=== PATIENT | male | born 1960 | race Caucasian/White ===

== ENCOUNTER 2017-10-02 10:33 | Inpatient (IN) | payer OTHER, MEDICAID ==
[~2017-10-02] VITALS: Ht 172.7 cm; Wt 78.5 kg
[2017-10-02] MEDS ORDERED: SODIUM CHLORIDE 0.9% 1,000 ML IV ONE (11:06)
[2017-10-02] MEDS ORDERED: KETOROLAC TROMETH 30 MG/ML 1ML VIAL IV ONE (11:15)
[2017-10-02 11:38] LABS: Basophils # (auto) 0.1 uL; Basophils % (auto) 0.6 % (0.0-2.0); Eosinophils # (auto) 0.1 uL; Eosinophils % (auto) 0.8 % (0.0-7.0); Hemoglobin 17.9 g/dL (13.5-17.5); Nucleated Red Blood Cells % 0.2 %
[2017-10-02 11:40] LABS: Hematocrit 53.1 % (41.0-53.0); Lymphocytes # (auto) 1.6 uL; Lymphocytes % (auto) 12.5 % (10.0-50.0); Mean Corpuscular Hemoglobin 30.3 pg (28.0-32.0); Mean Corpuscular Hgb Conc. 33.8 g/dL (32.0-36.0); Mean Corpuscular Volume 89.8 fL (80.0-100.0); Monocytes # (auto) 0.7 uL; Monocytes % (auto) 5.8 % (0.0-12.0); Neutrophils # (auto) 10.2 uL; Neutrophils % (auto) 80.3 % (37.0-80.0); Platelet Count (auto) 228 10^3/uL (140-450); Red Blood Cells 5.91 10^6/uL (4.5-5.90); Red Cell Distribution Width 13.6 % (11.8-14.3); White Blood Cell 12.7 10^3/uL (4.4-10.8)
[2017-10-02 12:02] LABS: INR 0.93 (0.9-1.15); Partial Thromboplastin Time 26.8 sec (22.64-33.71); Prothrombin Time 10.1 sec (9.37-12.3)
[2017-10-02 12:05] LABS: Albumin 3.9 g/dL (3.4-5.0); BUN/Creatinine Ratio 9.9; Bilirubin, Total 0.6 mg/dL (0.2-1.0); Calcium 8.6 mg/dL (8.5-10.1); Magnesium 2.7 mg/dL (1.6-2.6); Potassium 4.8 mmol/L (3.5-5.1); Total Protein 8.1 g/dL (6.4-8.2)
[2017-10-02] MEDS ORDERED: IOHEXOL 350 MG/ML 100ML IJ ONE (12:13)
[2017-10-02] MEDS ORDERED: LORazepam 0.5 MG TAB PO PRN (14:15)
[2017-10-02] MEDS ORDERED: ONDANSETRON HCL 4 MG/2 ML VIAL IV PRN (14:15)
[2017-10-02] MEDS ORDERED: NITROGLYCERIN 0.4 MG SL TAB SL PRN ×2 (14:15)
[2017-10-02] MEDS ORDERED: ACETAMINOPHEN 325 MG TAB PO PRN (14:15)
[2017-10-02] MEDS ORDERED: MORPHINE SULFATE 4 MG/ML SYR/VIAL IV PRN (14:15)
[2017-10-02] MEDS ORDERED: ZOLPIDEM TARTRATE 5 MG TAB PO PRN (14:15)
[2017-10-02] MEDS ORDERED: ALUM & MAG HYDROX-SIMETH LIQ(MAALOX) 30 ML PO ONE (14:15)
[2017-10-02] MEDS ORDERED: cloNIDine HCL 0.1 MG TAB ONE (18:54)
[2017-10-02 18:55] LABS: Urine Bacteria NONE SEEN /hpf (None Seen); Urine Blood Negative /uL (Negative); Urine Specific Gravity 1.031 (1.001-1.035); Urine WBC 2 /hpf (0 - 3)
[2017-10-02] MEDS ORDERED: cloNIDine HCL 0.1 MG TAB PO PRN (19:00)
[2017-10-02] MEDS ORDERED: TICAGRELOR 90 MG TAB PO ONE (21:15)
[2017-10-02] MEDS: CARVEDILOL 3.125 MG TAB PO SCH (21:37)
[2017-10-02] MEDS: SODIUM CHLOR 0.9% PF (SALINE LOCK) 10ML VIAL IV SCH (21:38)
[2017-10-02] MEDS: LISINOPRIL 20 MG TAB PO SCH (22:00)
[2017-10-02] MEDS ORDERED: ENOXAPARIN SOD 80 MG/0.8ML SYRINGE SC SCH (22:00)
[2017-10-02] MEDS ORDERED: ATORVASTATIN 20 MG TAB PO SCH (22:00)
[2017-10-02] MEDS: MORPHINE SULFATE 4 MG/ML SYR/VIAL IV PRN (23:27)
[2017-10-03] VITALS (9 sets, daily range): BP systolic 100–115; BP diastolic 56–72
[2017-10-03] MEDS: MORPHINE SULFATE 4 MG/ML SYR/VIAL IV PRN (02:22)
[2017-10-03] MEDS ORDERED: IOHEXOL 350 MG/ML 100ML IJ ONE (03:15)
[2017-10-03] MEDS ORDERED: LIDOCAINE HCL 2 %PF INJ 10ML AMP IJ ONE (03:18)
[2017-10-03] MEDS ORDERED: ANGIOMAX 250 MG VIAL IV ONE (03:19)
[2017-10-03] MEDS ORDERED: MIDAZOLAM HCL 1MG/1ML-2 ML VIAL ONE (03:19)
[2017-10-03] MEDS ORDERED: fentaNYL CITRATE 100 MCG/2 ML VL ONE (03:19)
[2017-10-03] MEDS ORDERED: EPTIFIBATIDE INJ (2MG/ML) 10ML VIAL IV ONE ×2 (03:20→03:55)
[2017-10-03] MEDS ORDERED: SODIUM CHL 0.9% 50 ML ONE (03:20)
[2017-10-03] MEDS ORDERED: ATROPINE SULF 0.5 MG/5ML SYR ONE (03:36)
[2017-10-03] MEDS ORDERED: IODIXANOL 320MG/ML 100ML BTL IV ONE (03:55)
[2017-10-03] MEDS ORDERED: EPTIFIBATIDE DRIP(0.75MG/ML) 0 ML IV ONE (03:56)
[2017-10-03] MEDS ORDERED: SODIUM CHLORIDE 0.9% 1,000 ML IV SCH (04:30)
[2017-10-03] MEDS: SODIUM CHLOR 0.9% PF (SALINE LOCK) 10ML VIAL IV SCH ×2 (06:00→13:37)
[2017-10-03] MEDS ORDERED: OMEP20CA74 PO (06:34)
[2017-10-03] MEDS ORDERED: LORA1TAB12 PO (06:34)
[2017-10-03] MEDS ORDERED: LISI-646 PO (06:34)
[2017-10-03] MEDS ORDERED: EZET10TA6 PO (06:34)
[2017-10-03 08:33] LABS: Basophils # (auto) 0.1 uL; Basophils % (auto) 0.9 % (0.0-2.0); Eosinophils # (auto) 0.1 uL; Eosinophils % (auto) 0.5 % (0.0-7.0); Hematocrit 44.2 % (41.0-53.0); Hemoglobin 14.8 g/dL (13.5-17.5); Lymphocytes # (auto) 1.8 uL; Mean Corpuscular Hgb Conc. 33.6 g/dL (32.0-36.0); Mean Corpuscular Volume 89.4 fL (80.0-100.0); Monocytes # (auto) 0.9 uL; Monocytes % (auto) 8.3 % (0.0-12.0); Neutrophils # (auto) 8.2 uL; Neutrophils % (auto) 74.3 % (37.0-80.0); Platelet Count (auto) 181 10^3/uL (140-450); Red Blood Cells 4.94 10^6/uL (4.5-5.90); Red Cell Distribution Width 13.5 % (11.8-14.3); White Blood Cell 11.1 10^3/uL (4.4-10.8)
[2017-10-03 09:54] LABS: Albumin 3.2 g/dL (3.4-5.0); BUN/Creatinine Ratio 13.1; Magnesium 2.5 mg/dL (1.6-2.6); Potassium 4.9 mmol/L (3.5-5.1); Total Protein 6.5 g/dL (6.4-8.2)
[2017-10-03] MEDS: CARVEDILOL 3.125 MG TAB PO SCH (10:00)
[2017-10-03] MEDS ORDERED: TICAGRELOR 90 MG TAB PO SCH (10:00)
[2017-10-03] MEDS ORDERED: DOCUSATE SOD 100 MG CAP PO SCH (10:00)
[2017-10-03] MEDS: LISINOPRIL 20 MG TAB PO SCH (10:00)
[2017-10-03] MEDS ORDERED: CLOPIDOGREL BISULFATE 75 MG TAB PO SCH (10:00)
[2017-10-03] MEDS ORDERED: ASPirin 81 mg TAB PO SCH (10:00)
== END 2017-10-03 18:30 | disposition home or self-care (01) | DRG 247 ==
LOC: ER 10:33 → TELE 10:34 → DOU IN ICU 23:18 → TELE 10-03 00:08 → DOU IN ICU 10-03 05:00
PROVIDERS: ADMIT Internal Medicine; ATTEND Internal Medicine
PROC: 027035Z Dilation of Coronary Artery, One Artery with Two Drug-eluting Intraluminal Devices, Percutaneous Approach (ICD-10-PCS; principal; 2017-10-03)
PROC: 4A023N7 Measurement of Cardiac Sampling and Pressure, Left Heart, Percutaneous Approach (ICD-10-PCS; 2017-10-03)
PROC: B2111ZZ Fluoroscopy of Multiple Coronary Arteries using Low Osmolar Contrast (ICD-10-PCS; 2017-10-03)
DX: I21.4 Non-ST elevation (NSTEMI) myocardial infarction (principal); D75.1 Secondary polycythemia; I25.82 Chronic total occlusion of coronary artery; E83.41 Hypermagnesemia; J44.9 Chronic obstructive pulmonary disease, unspecified; N18.2 Chronic kidney disease, stage 2 (mild); I12.9 Hypertensive chronic kidney disease with stage 1 through stage 4 chronic kidney disease, or unspecified chronic kidney disease; I25.10 Atherosclerotic heart disease of native coronary artery without angina pectoris; R00.1 Bradycardia, unspecified; R79.1 Abnormal coagulation profile; D72.829 Elevated white blood cell count, unspecified; F17.210 Nicotine dependence, cigarettes, uncomplicated; N18.9 Chronic kidney disease, unspecified; Z79.82 Long term (current) use of aspirin; Z79.899 Other long term (current) drug therapy; Z88.5 Allergy status to narcotic agent; Z71.6 Tobacco abuse counseling
CPT/HCPCS: 36415; 71046; 71275; 80053; 80061; 81001; 83735; 83880; 84484; 85025; 85379; 85610; 85730; 86850; 86900; 86901; 87081; 87086; 92928; 93005; 93306; 93458; 93970; 99152; C1874; C1887; J0461; J1885; J2250; J2405; Q9967